=== PATIENT | female | born 1960 | race Caucasian/White ===

== ENCOUNTER 2017-01-27 19:43 | Emergency (ER) | payer OTHER ==
[~2017-01-27] VITALS: Ht 162.6 cm; Wt 58.4 kg
[~2017-01-27 19:43] MED LIST: CLON1 PO; DARV PO
[2017-01-27 20:03] VITALS: BP 134/82; PULSE 83; RESP 18; TEMP 97.9; O2SAT 100
[2017-01-27] MEDS ORDERED: CLON1 PO (21:58)
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
[2017-01-27] MEDS ORDERED: CYCLOBENZAPRINE HCL 10 MG TAB PO ONE (22:30)
[2017-01-27] MEDS ORDERED: IBUP800T23 PO (22:32)
[2017-01-27] MEDS ORDERED: CYCL5TAB PO (22:32)
== END 2017-01-27 22:39 | disposition home or self-care (01) ==
LOC: PHED 19:43 → PHEFT 22:39
DX: T14.8 Other injury of unspecified body region (principal); M54.2 Cervicalgia; M25.511 Pain in right shoulder; F17.210 Nicotine dependence, cigarettes, uncomplicated; V43.52XA Car driver injured in collision with other type car in traffic accident, initial encounter; Y93.89 Activity, other specified; Y92.414 Local residential or business street as the place of occurrence of the external cause
CPT/HCPCS: 99283